=== PATIENT | male | born 1960 | race Caucasian/White ===

== ENCOUNTER 2018-10-31 11:49 | Emergency (ER) | payer BC ==
[~2018-10-31] VITALS: Ht 180.3 cm; Wt 151.1 kg
[~2018-10-31 11:49] MED LIST: AMITRIPTYLINE H10 M1 PO; ASPIR 8181 MG PO; ATORVASTATIN CA10 MG PO; CELEXA20 MG PO; COUMADIN 5 MG TA5 M1 PO; COZAAR 50 MG TA50 M1 PO; ENOXAPARIN150 MG/11 SUBQ; FLEXERIL PO; IBUPROFEN 800800 M1 PO; LOSARTAN-HCTZ1 EAC2 PO; NORCO 5-325 TA1 EACH PO; OMEPRAZOLE 20 M20 M1; OMEPRAZOLE 20 M20 MG PO; PERCOCET 5-3251 EACH PO; ROBAXIN500 MG PO; TRAMADOL 50 MG50 MG PO; TRAMADOL100 MG
[2018-10-31 12:07] LABS: ABSOLUTE BASOPHILS 0.1 thou/uL (0.0-0.2); ABSOLUTE EOSINOPHILS 0.1 thou/uL (0.0-0.7); ABSOLUTE LYMPHOCYTES 3.2 thou/uL (0.8-5.3); ABSOLUTE MONOCYTES 1.2 thou/uL (0.0-1.2); EOSINOPHILS 1.2 %; HEMATOCRIT 43.9 % (42.0-52.0); LYMPHOCYTES 29.8 %; MCH 30.8 pg (26.0-34.0); MCHC 34.1 g/dL (28.0-37.0); MCV 90.2 fL (80.0-100.0); MONOCYTES 11.1 %; MPV 8.7 fl. (7.2-11.1); NUCLEATED RBCS 0 /100WBC; PLATELET COUNT* 260 thou/uL (150-400); POLYS 56.9 %; RBC 4.86 mil/uL (4.50-6.00); RDW-CV 14.6 % (10.5-14.5); WBC 10.6 thou/uL (4.0-11.0)
[2018-10-31 12:21] LABS: ANION GAP 9 mmol/L (7-16); BUN 18 mg/dL (7-18); CALCIUM 8.6 mg/dL (8.5-10.1); CHLORIDE 99 mmol/L (98-107); CO2 30 mmol/L (21-32); CREATININE 1.1 mg/dL (0.6-1.3); GLUCOSE 108 mg/dL (70-99); POTASSIUM 3.2 mmol/L (3.5-5.1); SODIUM 138 mmol/L (136-145)
[2018-10-31 12:47] LABS: ALBUMIN 3.6 g/dL (3.4-5.0); ALKALINE PHOSPHATASE 70 U/L (46-116); CK-MB MASS 1.4 ng/mL (<0.5-3.6); LIPASE 96 U/L (73-393); MAGNESIUM 1.9 mg/dL (1.8-2.4); NT-PRO BRAIN NAT PEPTIDE 65 pg/mL (<300); SGOT 19 U/L (15-37); SGPT 24 U/L (30-65); TOTAL BILIRUBIN 0.4 mg/dL (<0.1-1.0); TOTAL PROTEIN 7.5 g/dL (6.4-8.2); TROPONIN-I LEVEL <0.06 ng/mL (<0.06)
[2018-10-31 13:14] LABS: APTT 42.7 Seconds (25.0-31.3); INR 2.1; PROTIME 21.8 Seconds (9.20-11.50)
[2018-10-31 13:31] VITALS: BP 119/84
--- NOTE | 2018-10-31 18:02 | EKG ---
[place] [address] ELECTROCARDIOGRAM REPORT Name: YUSUF DONOVAN Room: [facility]#: [id number] Admission: 10/31/18 Attend Phys: Discharge: 10/31/18 Date of : 58 Report #: [id number] THIS REPORT FOR: //name// [facility] ED Test Date: 2018-10-31 Test Time: 11:53:04 Pat Name: YUSUF DONOVAN Department: Room: Gender: M [employer]: : 1960 Requested By: Julio Ruano Order Number: [id number] MD: Jerry Huynh Measurements Intervals [place] Rate: 92 P: 60 CO: 187 QRS: 5 QRSD: 108 T: 41 QT: 394 QTc: 488 Interpretive Statements Sinus rhythm Baseline wander in lead(s) V4,V5,V6 Compared to ECG 05/01/2015 12:58:54 No significant changes Electronically Signed On 10-31-2018 18:02:04 CDT by Jerry Huynh [email or web address] <ELECTRONICALLY SIGNED> By: Jerry Huynh MD, [facility] 10/31/18 1802 1153 1153 Jerry Huynh MD, [facility] /EPI
== END 2018-10-31 13:31 | disposition home or self-care (01) ==
LOC: M.ERS 11:49
PROVIDERS: Family Medicine
DX: M54.6 Pain in thoracic spine (principal); I10 Essential (primary) hypertension; E78.00 Pure hypercholesterolemia, unspecified; Z90.5 Acquired absence of kidney; Z87.891 Personal history of nicotine dependence

== ENCOUNTER 2020-11-09 10:27 | Emergency (ER) | payer BC ==
[~2020-11-09] VITALS: Ht 188 cm; Wt 138.3 kg
[2020-11-09 10:33] VITALS: BP 134/85
[2020-11-09 12:31] LABS: URINE BILIRUBIN NEGATIVE (Negative); URINE BLOOD NEGATIVE (Negative); URINE CLARITY CLEAR; URINE COLOR YELLOW; URINE GLUCOSE-RANDOM NEGATIVE (Negative); URINE KETONES NEGATIVE (Negative); URINE LEUKOCYTES-REFLEX NEGATIVE (Negative); URINE NITRITE-REFLEX NEGATIVE (Negative); URINE PROTEIN NEGATIVE (Negative); URINE UROBILINOGEN 0.2 E.U./dl (0.2-1.0)
== END 2020-11-09 11:50 | disposition left against medical advice (07) ==
LOC: M.ERS 10:27
PROVIDERS: Nurse Practitioner Family
DX: Z53.21 Procedure and treatment not carried out due to patient leaving prior to being seen by health care provider (principal)